=== PATIENT | female | born 1960 | race Caucasian/White ===

== ENCOUNTER → 2016-11-23 | Outpatient (CLI) | payer BC ==
[~2016-11-23] MED LIST: ATEN25TA PO; ATEN50TA PO; ATEN50TA8 PO; BUSP15TA70 PO; CITA40TA4 PO; MULT-506 PO
== END | disposition home or self-care (01) ==
LOC: C.PAPS 09:31
PROVIDERS: ATTEND Family Medicine
DX: Z01.411 Encounter for gynecological examination (general) (routine) with abnormal findings (principal); R87.616 Satisfactory cervical smear but lacking transformation zone; N88.0 Leukoplakia of cervix uteri

== ENCOUNTER → 2016-11-27 | Outpatient (CLI) | payer BC ==
--- NOTE | 2016-11-27 12:06 | DIAGNOSTIC IMAGING REPORT ---
EXAMINATION: PELVIC ULTRASOUND CLINICAL HISTORY: [id number] PELVIC PAIN COMPARISON STUDY: None FINDINGS: The uterus measured 5.2 cm. The endometrial stripe measured 5 mm. The right ovary measured 1.3 cm maximum dimension. Normal vascular flow. The left ovary measured 2.4 cm maximum dimension with normal vascular flow. There is no ultrasonographic evidence of ovarian torsion. It should be noted that ovarian torsion can be present with normal Doppler ultrasonographic findings. There was no evidence of pathologic free pelvic fluid. IMPRESSION: Negative study Electronically signed by: Pierce Koenig M.D. 11/27/2016 12:05 PM Dictated Date/Time: 11/27/2016 12:03 PM
--- NOTE | 2016-11-28 10:06 | DIAGNOSTIC IMAGING REPORT ---
EXAMINATION: PELVIC ULTRASOUND CLINICAL HISTORY: [id number] PELVIC PAIN COMPARISON STUDY: None FINDINGS: The uterus measured 5.2 cm. The endometrial stripe measured 5 mm. The right ovary measured 1.3 cm maximum dimension. Normal vascular flow. The left ovary measured 2.4 cm maximum dimension with normal vascular flow. There is no ultrasonographic evidence of ovarian torsion. It should be noted that ovarian torsion can be present with normal Doppler ultrasonographic findings. There was no evidence of pathologic free pelvic fluid. IMPRESSION: Negative study Electronically signed by: Pierce Koenig M.D. 11/27/2016 12:05 PM Dictated Date/Time: 11/27/2016 12:03 PM
== END | disposition home or self-care (01) ==
LOC: C.ULTR 10:37
PROVIDERS: ATTEND Family Medicine
DX: N94.10 Unspecified dyspareunia (principal)

== ENCOUNTER → 2016-12-14 | Day surgery (SDC) | payer BC, OTHER ==
[2016-12-12 09:03] VITALS: Ht 167.6 cm; Wt 77.3 kg
[~2016-12-14] VITALS: Ht 167.6 cm; Wt 77.3 kg
[~2016-12-14] MED LIST changes: -ATEN25TA PO
--- NOTE | 2016-12-14 13:23 | Endo History and Physical ---
History & Physical Date of Service: Dec 14, 2016. Chief Complaint: 3 yr f/u, hx polyps Referring Physician: Vandana Araiza History of Present Illness 56 yo CF who presents for colonoscopy secondary to history of polyps. Past Surgical History Hx Cardiac Surgery: No Hx Internal Defibrillator: No Hx Pacemaker: No Hx Abdominal Surgery: Yes (UTERINE ABLATION, TUBAL LIGATION) Hx of Implantable Prosthesis: No Hx Post-Op Nausea and Vomiting: No Hx Cancer Surgery: No Hx Thoracic Surgery: No Hx Orthopedic: No Hx Urinary Tract Surgery: No Family History Colon CA Social History Smoking Status: Never Smoker Hx Substance Use: No Hx Alcohol Use: No Allergies Coded Allergies: No Known Allergies (Verified , 12/12/16) Current Medications Reported Home Medications Medications Dose Route/Sig Max Daily Dose Days Date Category Multivitamin (Multivitamins) Tab 1 Tab PO QAM 12/12/16 Reported Buspar (Buspirone Hcl) 15 Mg Tab 15 Mg PO BID 12/12/16 Reported Tenormin (Atenolol) 50 Mg Tab 0.5 Tab PO QPM 12/12/16 Reported Citalopram Hydrobromide 40 Mg Tab 1.5 Tab PO QAM 05/16/13 Reported Tenormin (Atenolol) 50 Mg Tab 50 Mg PO QAM 05/02/06 Reported Vital Signs Weight (Kilograms): 77.27 Height (Feet): 5 Height (Inches): 6 Date Time Temp Pulse Resp B/P Pulse Ox O2 Delivery O2 Flow Rate FiO2 12/14/16 12:51 36.6 60 16 109/68 96 Room Air Physical Exam General Appearance: WD/WN, no apparent distress Respiratory/Chest: Auscultation: breath sounds normal Cardiovascular: Heart Auscultation: RRR Abdomen: Bowel Sounds: normal Inspection & Palpation: soft, non-distended, no tenderness, guarding & rebound Assessment and Plan Assessment: 56 yo CF who presents for colonoscopy secondary to history of polyps. Plan: Proceed with colonoscopy.
--- NOTE | 2016-12-14 13:41 | Discharge Instructions ---
Endoscopy Patient Instructions Date / Procedure(s) Performed Dec 14, 2016. Colonoscopy Allergy Information Coded Allergies: No Known Allergies (Verified , 12/12/16) Discharge Date / Findings Dec 14, 2016. Colon polyps Internal hemorrhoids Medication Instructions OK to resume all medications today as prescribed. Reported Home Medications Medications Dose Route/Sig Max Daily Dose Days Date Category Multivitamin (Multivitamins) Tab 1 Tab PO QAM 12/12/16 Reported Buspar (Buspirone Hcl) 15 Mg Tab 15 Mg PO BID 12/12/16 Reported Tenormin (Atenolol) 50 Mg Tab 0.5 Tab PO QPM 12/12/16 Reported Citalopram Hydrobromide 40 Mg Tab 1.5 Tab PO QAM 05/16/13 Reported Tenormin (Atenolol) 50 Mg Tab 50 Mg PO QAM 05/02/06 Reported Provider Instructions Activity Restrictions - No exercising or heavy lifting for 24 hours. - Do not drink alcohol the day of the procedure. - Do not drive a car or operate machinery until the day after the procedure. - Do not make any important decisions or sign important papers in 24 hours after the procedure. Following Day: - Return to full activity which may include returning to work/school. Diet Start your diet with liquids and light foods (jello, soup, juice, toast). Then eat your usual diet if not nauseated. Treatment For Common After Affects For mild abdominal pain, bloating, or excessive gas: - Rest - Eat lightly - Lie on right side Follow-Up Information Follow-up with Vandana Araiza as scheduled Anesthesia Information What You Should Know You have had a procedure that required some medicine to reduce anxiety and discomfort. This treatment is called moderate sedation. After receiving the treatment, you may be sleepy, but you will be able to breathe on your own. The effects of the treatment may last for several hours. Follow these instructions along with Activity/Diet recommendations noted above: * Do NOT do anything where dizziness or clumsiness would be dangerous. * Rest quietly at home today, then you can be up and about tomorrow. * Have a responsible person stay with you the rest of today. * You may have had an I.V. today. If so, you may take the dressing off later today. Recommendations Call your doctor if: * Trouble breathing * Continuous vomiting for more than 24 hours * Temperature above 101 degrees * Severe abdominal pain or bloating * Pain not relieved by pain medicine ordered * There is increased drainage or redness from any incision * A large amount of rectal bleeding greater than 2-3 tablespoons. (If you had a polyp/s removed or have hemorrhoids, a small amount of blood - from the rectum is to be expected.) * You have any unanswered questions or concerns. IN THE EVENT OF A SERIOUS EMERGENCY, GO TO THE NEAREST EMERGENCY ROOM Your discharge instructions were prepared by provider Dayo Mix. Patient Instructions Signature Page Eliz Jalloh Patient (or Guardian) Signature/Date: I have read and understand the instructions given to me by my caregivers. Caregiver/RN/Doctor Signature/Date: The above-named patient and/or guardian has received patient instructions on this date. + Original Patient Signature Page (only) stays with chart. Please make copy for patient.
--- NOTE | 2016-12-14 13:45 | GI REPORT ---
Procedure Date: 12/14/2016 1:14 PM Procedure: Colonoscopy Indications: High risk colon cancer surveillance: Personal history of colonic polyps Medicines: Monitored Anesthesia Care Complications: No immediate complications. Estimated Blood Loss: Estimated blood loss: none. Procedure: Pre-Anesthesia Assessment: - Prior to the procedure, a History and Physical was performed, and patient medications and allergies were reviewed. The patient's tolerance of previous anesthesia was also reviewed. The risks and benefits of the procedure and the sedation options and risks were discussed with the patient. All questions were answered, and informed consent was obtained. Prior Anticoagulants: The patient has taken no previous anticoagulant or antiplatelet agents. ASA Grade Assessment: II - A patient with mild systemic disease. After reviewing the risks and benefits, the patient was deemed in satisfactory condition to undergo the procedure. After I obtained informed consent, the scope was passed under direct vision. Throughout the procedure, the patient's blood pressure, pulse, and oxygen saturations were monitored continuously. The scope was introduced through the anus and advanced to the terminal ileum. The colonoscopy was performed without difficulty. The patient tolerated the procedure well. The quality of the bowel preparation was good. The terminal ileum, ileocecal valve, appendiceal orifice, and rectum were photographed. Findings: Four sessile polyps were found in the sigmoid colon. The polyps were 3 to 5 mm in size. These polyps were removed with a hot snare. Resection and retrieval were complete. Non-bleeding internal hemorrhoids were found during retroflexion. The hemorrhoids were small. Impression: - Four 3 to 5 mm polyps in the sigmoid colon, removed with a hot snare. Resected and retrieved. - Non-bleeding internal hemorrhoids. Recommendation: - Resume previous diet. - Continue present medications. - Repeat colonoscopy for surveillance based on pathology results. - Return to primary care physician as previously scheduled. Dayo Mix DO 12/14/2016 1:43:59 PM This report has been signed electronically. Note Initiated On: 12/14/2016 1:14 PM I attest to the content of the Intraoperative Record and orders documented therein, exceptions below
[2016-12-14 13:59] VITALS: BP 119/65; PULSE 59; O2SAT 97
--- NOTE | 2016-12-14 14:37 | Anesthesiology Progress Note ---
Anesthesia Post Op Note Date & Time Dec 14, 2016 at 14:37 Vital Signs Pain Intensity: 0 Vital Signs Past 12 Hours Date Time Temp Pulse Resp B/P Pulse Ox O2 Delivery O2 Flow Rate FiO2 12/14/16 13:59 59 16 119/65 97 Room Air 12/14/16 13:44 60 16 105/58 96 Room Air 12/14/16 12:51 36.6 60 16 109/68 96 Room Air Notes Mental Status: alert / awake / arousable, participated in evaluation Pt Amnestic to Procedure: Yes Nausea / Vomiting: adequately controlled Pain: adequately controlled Airway Patency, RR, SpO2: stable & adequate BP & HR: stable & adequate Hydration State: stable & adequate Anesthetic Complications: no major complications apparent
== END | disposition home or self-care (01) ==
LOC: C.GI 12:27
PROVIDERS: ATTEND Internal Medicine
DX: Z12.11 Encounter for screening for malignant neoplasm of colon (principal); Z86.010 Personal history of colon polyps; Z80.0 Family history of malignant neoplasm of digestive organs; K63.5 Polyp of colon; K64.8 Other hemorrhoids; Z98.51 Tubal ligation status

== ENCOUNTER → 2017-03-28 | Outpatient (CLI) | payer BC ==
[2017-03-28 10:30] LABS: CHOLESTEROL/HDL RATIO 4.8
[2017-03-28 10:31] LABS: ESTIMATED AVERAGE GLUCOSE 105 mg/dl; HA1C FLAG Normal (Normal)
== END | disposition home or self-care (01) ==
LOC: C.LAB1850 08:51
PROVIDERS: ATTEND Family Medicine
DX: Z13.220 Encounter for screening for lipoid disorders (principal); Z13.1 Encounter for screening for diabetes mellitus

== ENCOUNTER → 2017-05-16 | Outpatient (CLI) | payer BC ==
[2017-05-16 18:22] LABS: BENZODIAZEPINE, URINE NEG (NEG); COCAINE,URINE NEG (NEG); PHENCYCLIDINE, URINE NEG (NEG)
== END | disposition home or self-care (01) ==
LOC: C.LAB 17:19
PROVIDERS: ATTEND Physician Assistant
DX: Z00.00 Encounter for general adult medical examination without abnormal findings (principal)

== ENCOUNTER → 2018-02-11 | Outpatient (CLI) | payer BC ==
--- NOTE | 2018-02-11 09:57 | DIAGNOSTIC IMAGING REPORT ---
L FOREARM 2 VIEWS ROUTINE CLINICAL HISTORY: M79.602 Pain of left upper [id number] pain COMPARISON: None. DISCUSSION: The bones and joint spaces appear intact. There is no evidence of fracture, dislocation or bony disease. There is no evidence for soft tissue swelling. IMPRESSION: Negative study. The above report was generated using voice recognition software. It may contain grammatical, syntax or spelling errors. Electronically signed by: Pierce Koenig M.D. 02/11/2018 9:56 AM Dictated Date/Time: 02/11/2018 9:55 AM
--- NOTE | 2018-02-11 09:58 | DIAGNOSTIC IMAGING REPORT ---
L WRIST MIN 3 VIEWS ROUTINE CLINICAL HISTORY: M79.602 left wrist pain COMPARISON: None. DISCUSSION: No fractures or dislocations are visualized. There is no evidence for erosive disease. IMPRESSION: 1. No fractures identified 2. No evidence of erosive disease Electronically signed by: Thomas Paz M.D. 02/11/2018 9:57 AM Dictated Date/Time: 02/11/2018 9:56 AM
== END | disposition home or self-care (01) ==
LOC: C.RAD1850 09:41
PROVIDERS: ATTEND Nurse Practitioner Family
DX: M79.602 Pain in left arm (principal)

== ENCOUNTER 2018-12-16 08:41 | Observation (INO) ==
--- NOTE | 2018-12-12 12:50 | PAT Medication Instructions ---
Medication Instructions Date of Service December 12, 2018 Home Medications buspirone 15 mg PO BID citalopram 1.5 tab PO QAM hydroxyzine HCl 5 - 10 mg PO QID PRN (if needed) metoprolol succinate 50 mg PO BID Take morning of surgery With a small sip of water, OTHERWISE NOTHING TO EAT OR DRINK AFTER MIDNIGHT: buspirone 15 mg PO BID citalopram 1.5 tab PO QAM hydroxyzine HCl 5 - 10 mg PO QID PRN (if needed) metoprolol succinate 50 mg PO BID Take evening before surgery buspirone 15 mg PO BID hydroxyzine HCl 5 - 10 mg PO QID PRN (if needed) metoprolol succinate 50 mg PO BID Other Notes If you have any questions please call us at [phone] or [phone] or [phone] or [phone]
--- NOTE | 2018-12-12 14:44 | Anesthesiology Consultation ---
Date of Service December 12, 2018 Assessment & Plan (1) Encounter for pre-operative examination: Chart Review Chart Review: Acceptable Risk for Surgery and Patient seen in Pre Admission Testing Teaching & Discussion Pre-Anesthesia Teaching/Discussion Notes: Instructed NPO after midnight before surgery,except medications with 15 cc of water. Medication instructions provided according to the PAT guidelines. History Surgery Operation Date: 12/16/18 11:30 Proposed Procedures p Bilateral Breast Reduction - Symone Knowles MD Height/Weight Height: 5 ft 5 in Weight: 83.5 kg Allergies Allergy/AdvReac Type Severity Reaction Status Date / Time No Known Allergies Allergy Unknown Verified 12/06/18 12:14 Medications Home Medications Medication Instructions Recorded Confirmed Last Taken buspirone 15 mg PO BID 12/06/18 12/06/18 Unknown citalopram 1.5 tab PO QAM 12/06/18 12/06/18 Unknown hydroxyzine HCl 5 - 10 mg PO QID PRN 12/06/18 12/06/18 Unknown metoprolol succinate 50 mg PO BID 12/06/18 12/06/18 Unknown Past Medical History Medical History Obesity Anxiety and depression Hypertension Past Family History Family History Father FHx: colon cancer Mother FHx: colon cancer Past Surgical History Surgical History Hx of section Hx of tubal ligation Hx of vaginal surgery ABLATION Past Anesthesia History No Hx of Anesthesia Complications and No Family Hx of Anesthesia Complications History of PONV No Motion Sickness Screening History of Motion Sickness: Yes Social History Smoking Status: Former smoker Do You Dip or Chew Tobacco: No Smoking End Date: QUIT > 25 YEARS AGO Hx Alcohol Use: No Hx Substance Use: No Exercise / Class Metabolic Activity II 4-5 Yardwork/Stairs/Walk up hill Review of Systems Patient denies chest pain, shortness of breath, dyspnea on exertion, cough, wheezing, palpitations. Physical Exam Vital Signs VITALS BP 106/73 P 56 TEMP 97.4 SP02 97%RA RESP 16 PHYSICAL Full neck and c-spine range of motion. Full TMJ range of motion. TMD 3 finger breaths Mallampati Score 1 Dentition: intact Lungs: clear throughout to auscultation Cardiac: regular rate and rhythm, no murmurs noted Spine: normal Carotid arteries: negative bruit Extremities: no edema Testing Electrocardiogram Date: 12/12/18 SB with first degree AVB at 57bpm. Laboratory Results 12/12/18 14:52 12/12/18 14:52 PT 10.1 Seconds (9.0-12.0) 12/12/18 14:52 INR 1.0 (0.9-1.1) 12/12/18 14:52 APTT 26.9 Seconds (21.0-31.0) 12/12/18 14:52
[2018-12-12 15:33] LABS: Basophils # (auto) 0.01 K/uL (0-0.2); Basophils % (auto) 0.1 %; Eosinophils % (auto) 2.6 %; Hematocrit (blood only) 41.2 % (37-47); Hemoglobin 14.2 g/dL (12.0-16.0); Immature Granulocytes # (auto) 0.01 K/uL (0.00-0.02); Immature Granulocytes % (auto) 0.1 %; Lymphocytes # (auto) 2.94 K/uL (1.2-3.4); Lymphocytes % (auto) 38.4 %; Mean Corpuscular Hgb Conc 34.5 g/dL (32-36); Mean Corpuscular Volume 89.6 fL (80-100); Mean Platelet Volume 10.8 fL (7.4-10.4); Monocytes # (auto) 0.41 K/uL (0.11-0.59); Monocytes % (auto) 5.4 %; Neutrophils # (auto) 4.08 K/uL (1.4-6.5); Neutrophils % (auto) 53.4 %; Platelet Count 212 K/uL (130-400); RDW Standard Deviation 42.5 fL (36.4-46.3); White Blood Count 7.65 K/uL (4.8-10.8)
[2018-12-12 15:40] LABS: BUN Creatinine Ratio 15.1 (10-20); Calcium 8.9 mg/dl (8.5-10.1); Creatinine Clr Calc Pharmacy 87.2 ml/min; Est GFR (African American) 100.9; Est GFR (Non-African American) 87.1; Potassium 3.9 mmol/L (3.5-5.1)
[2018-12-12 15:48] LABS: Partial Thromboplastin Time 26.9 Seconds (21.0-31.0); Prothrombin Time 10.1 Seconds (9.0-12.0)
[~2018-12-16 08:41] MED LIST changes: -ATEN50TA PO; -ATEN50TA8 PO; -BUSP15TA70 PO; +CEFAZOLIN 2000MG 2,000 MG/15 ML SYR IV SCH; -CITA40TA4 PO; +LR 15ML/HR IV SCH; -MULT-506 PO
[2018-12-16] MEDS ORDERED: MIDAZOLAM HCL 1 MG/ML 2ML VIAL ONE (10:44)
[2018-12-16] MEDS ORDERED: fentaNYL citrate 100 MCG/2 ML VIAL ONE (10:45)
[2018-12-16] MEDS ORDERED: LIDOCAINE HCL 2% 2 ML VIAL/AMP(20MG/ML) INFIL ONE (10:46)
[2018-12-16] MEDS ORDERED: PROPOFOL IV EMULSION 10 MG/ML 20 ML VIAL IV ONE (10:46)
[2018-12-16] MEDS ORDERED: ROCURONIUM BROMIDE 10 MG/ML 5 ML VIAL ONE ×2 (10:47→13:33)
[2018-12-16] MEDS ORDERED: ePHEDrine sulfate 50 MG/ML AMP IV PRN (11:21)
[2018-12-16] MEDS ORDERED: ATROPINE SULFATE 0.1 MG/ML 10ML SYR IV PRN (11:21)
[2018-12-16] MEDS ORDERED: HYDROmorphone INJ 2 MG/ML SYR/VIAL IV PRN (11:21)
[2018-12-16] MEDS ORDERED: fentaNYL citrate 100 MCG/2 ML VIAL IV PRN (11:21)
[2018-12-16] MEDS ORDERED: ONDANSETRON INJ 2 MG/ML 2 ML VIAL IV PRN ×2 (11:21→16:50)
--- NOTE | 2018-12-16 11:37 | History & Physical Bridge Note ---
Date of Service December 16, 2018 History & Physical Bridge Note I have examined the patient, reviewed the History & Physical and in the interval since the performance of the History & Physical I have noted the following changes of clinical significance: no changes noted
[2018-12-16] MEDS ORDERED: BUPIVACAINE 0.25% 30 ML VIAL ONE (11:49)
[2018-12-16] MEDS ORDERED: LIDOCAINE/EPINEPHRINE 1% 20 ML VIAL ONE (11:49)
[2018-12-16] MEDS ORDERED: SCOPOLAMINE 1.5 MG TDSY ONE (11:53)
[2018-12-16] MEDS ORDERED: HYDROmorphone INJ 2 MG/ML SYR/VIAL ONE (12:30)
[2018-12-16] MEDS ORDERED: DEXAMETHASONE SOD INJ 4 MG/ML VIAL ONE (12:40)
[2018-12-16] MEDS ORDERED: ONDANSETRON INJ 2 MG/ML 2 ML VIAL ONE ×2 (12:40)
[2018-12-16] MEDS ORDERED: ePHEDrine sulfate 50 MG/ML SYR ONE (13:45)
[2018-12-16] MEDS ORDERED: GLYCOPYRROLATE 0.2 MG/ML VIAL ONE (14:26)
[2018-12-16] MEDS ORDERED: NEOSTIGMINE METHYLSULFATE 5 MG/5 ML SYR ONE (14:26)
--- NOTE | 2018-12-16 15:09 | Post Operative Brief Note ---
Immediate Post Op Note v1 Date of Surgery December 16, 2018 Pre & Post Diagnosis Operation Date: 12/16/18 11:30 Pre-Op Diagnosis: Bilateral Symptomatic Macromastia Post-Op Diagnosis: Bilateral Symptomatic Macromastia Procedure Operation Date: 12/16/18 11:30 Actual Procedures p Bilateral Breast Reduction(Bilateral) - Symone Knowles MD Surgeon Symone Knowles MD Buyer Agent Esmer Blackburn PA-C Estimated Blood Loss 50 Findings Consistent with Post-Op Diagnosis Drains Igor-Miranda Drain (x2)
--- NOTE | 2018-12-16 15:13 | Operative Report ---
Post Operative Report Pre & Post Diagnosis Operation Date: 12/16/18 11:30 Pre-Op Diagnosis: Bilateral Symptomatic Macromastia Post-Op Diagnosis: Bilateral Symptomatic Macromastia Procedure Operation Date: 12/16/18 11:30 Actual Procedures p Bilateral Breast Reduction(Bilateral) - Symone Knowles MD Surgeon Symone Knowles MD Miller Head Assistant Wet Process Esmer Blackburn PA-C Estimated Blood Loss 50 Findings Consistent with Post-Op Diagnosis Specimens left breast tissue 712 g, right breast 670 g Drains JPx2 Anesthesia Type General Complications none Indications back, neck and shoulder pain, intertrigo due to macromastia Description of Procedure The risks, benefits, and alternatives of the procedure were explained to the patient who agreed and signed consent. She was identified and marked in the preoperative holding area. She desired to be as small as possible while remaining proportional to her body size. She was brought to the operating room where she was positioned supine and placed under general anesthesia without incident. Surgical site was prepped and draped sterilely. A time-out procedure was performed. I began with the left side. Markings were reassessed and a 7 cm pedicle was marked. 1% lidocaine with epinephrine was used to anesthetize the planned incisions. A 38 mm cookie cutter was used to circumscribe the nipple-areolar complex. The previously marked 7 cm pedicle was incised using a 15 blade scalpel and deepithelized. I began with the medial dissection of the pedicle using electrocautery. Cautery was used to incise through dermis and breast parenchyma down to the chest wall, taking care not to undermine the pedicle during dissection. A similar procedure was undertaken on the lateral aspect of the pedicle again taking care not to undermine. Lastly, the pedicle was dissected out superiorly using electrocautery and this was carried down to the chest wall as well. I then began with excision of the medial breast tissue followed by lateral aspect of the breast tissue and surrounding keyhole incision. A 15 blade scalpel was used to make the inframammary fold incision and electrocautery was used to deepen the incision through dermis and breast parenchyma. Dissection was then carried superiorly to the level of the superior incision. Superior incision was then incised using a 15 blade scalpel and again dissected using electrocautery. This was undertaken laterally and then around the keyhole portion of the incision. Care was taken to leave some fat on the lateral pectoralis fascia in order to protect the T4 intercostal nerve. Hemostasis was achieved with electrocautery. The specimen was passed off in its entirety for weighing. Additional resection was undertaken from the superior flap in order to facilitate closure of the breast and to provide the best shape. The total resection weight of the left breast was 712 grams. The wound was irrigated with saline and hemostasis was achieved with electrocautery. 0.25% Marcaine plain was used to anesthetize the incisions as well as the pectoralis fascia. A 15 Maori Miguel Ángel drain was brought out through a separate stab incision. The nipple-areolar complex was brought into the keyhole using 2-0 Vicryl deep dermal suture. The wound was closed first in a lateral to mid breast direction and then medial to mid breast direction using 2-0 Vicryl deep dermal sutures. Vertical limb was also approximated using 2-0 Vicryl deep dermals and the nipple-areolar complex was inset using 2-0 Vicryl deep dermal sutures. Next, the superficial dermal layer was closed using 2-0 PDO running Quill suture along the inframammary fold and 3-0 PDS interrupted dermal sutures along the vertical limb and nipple-areolar complex. Lastly 3-0 Monocryl running subcuticular suture was placed. A similar procedure was undertaken on the right side with maximal excision weight of 670 grams. Breasts were symmetric and nipple-areolar complexes were viable bilaterally following wound closure. Dermabond Prineo was applied along the inframammary fold and vertical limb and Dermabond was placed around the nipple-areolar complex. Dry dressings and a surgical bra were placed. The patient was awakened and transferred to recovery room in satisfactory condition. Esmer Blackburn PA-C was present and scrubbed throughout the procedure and was instrumental in providing retraction during dissection of the pedicle and assisting in wound closure. I attest to the content of the Intraoperative Record and any orders documented therein. Any exceptions are noted below.
--- NOTE | 2018-12-16 16:29 | Anesthesiology Progress Note ---
Date of Service December 16, 2018 Anesthesia Post Procedure Vital Signs Vital Signs: Temp Pulse Pulse Pulse Resp BP BP 12/16/18 16:21 37.4 C 12/16/18 16:00 75 12 143/92 H 12/16/18 15:55 84 15 136/94 12/16/18 15:50 71 14 121/84 12/16/18 15:45 71 15 128/78 12/16/18 15:40 72 15 125/84 12/16/18 15:35 72 15 119/83 12/16/18 15:34 72 15 12/16/18 15:33 13 117/85 12/16/18 15:32 36.9 C 72 16 12/16/18 09:13 36.6 C 61 16 118/75 BP Pulse Ox 12/16/18 16:21 98 12/16/18 16:00 96 12/16/18 15:55 97 12/16/18 15:50 95 12/16/18 15:45 95 12/16/18 15:40 95 12/16/18 15:35 95 12/16/18 15:34 95 12/16/18 15:33 95 12/16/18 15:32 117/85 96 12/16/18 09:13 96 Pain Intensity Bilateral Breast: Pain Intensity: 0 Notes Mental Status: alert / awake / arousable and participated in evaluation Patient Amnestic to Procedure: Yes Nausea / Vomiting: adequately controlled Pain: adequately controlled Airway Patency, RR, SpO2: stable & adequate BP & HR: stable & adequate Hydration State: stable & adequate Anesthetic Complications: no major complications apparent
[2018-12-16] MEDS ORDERED: OXAZEPAM 10 MG CAPSULE PO PRN (16:50)
[2018-12-16] MEDS ORDERED: MoRPHine SULFATE 4 MG/ML 1 ML CARP\\VIAL IV PRN ×3 (16:50)
[2018-12-16] MEDS ORDERED: DiphenhydrAMINE HCL 50 MG/ML VIAL IV PRN (16:50)
[2018-12-16] MEDS ORDERED: OXYCODONE/ACETAMINOPHEN 5mg/325mg TAB PO PRN ×2 (16:50)
[2018-12-16] MEDS ORDERED: PROMETHAZINE HCL 12.5 MG in SODIUM CHLORIDE 0.9% 50 ML IV PRN (16:50)
[2018-12-16] MEDS ORDERED: D5W AND 1/2NSS + 20MEQ KCL 20 MEQ/1,000 ML BAG IV SCH (17:15)
[2018-12-16] MEDS: ACETAMINOPHEN 325 MG TAB PO PRN ×2 (17:17→21:57)
[2018-12-16] MEDS: CEFAZOLIN 2000MG 2,000 MG/15 ML SYR IV SCH (20:39)
[2018-12-16] MEDS: METOPROLOL SUCC 50MG EXT REL TAB PO SCH (20:39)
[2018-12-16] MEDS: BusPIRone 15 MG TAB PO SCH (20:39)
[2018-12-17] MEDS: ACETAMINOPHEN 325 MG TAB PO PRN (02:57)
[2018-12-17] MEDS: CEFAZOLIN 2000MG 2,000 MG/15 ML SYR IV SCH (03:00)
--- NOTE | 2018-12-17 08:08 | Surgery Progress Note ---
Date of Service December 17, 2018 Assessment & Plan (1) Breast hypertrophy: s/p bilateral breast reduction. Feeling well. Drains removed. D/C home todya Subjective Patient feeling well. Notes improvement in her pre-op symptoms. Offers no concerns. Physical Exam 2 Vital Signs (Past 24 Hours): Last Vital Signs Temp 36.6 C 12/17/18 03:56 Pulse 76 12/17/18 03:56 Resp 14 12/17/18 03:56 BP 111/75 12/17/18 03:56 Pulse Ox 95 12/17/18 03:56 Constitutional: WD/WN, vitals as above Skin: + incision (CDI, nipples pink and viable bilaterally)
[2018-12-17] MEDS: BusPIRone 15 MG TAB PO SCH (08:49)
[2018-12-17] MEDS: METOPROLOL SUCC 50MG EXT REL TAB PO SCH (08:50)
[2018-12-17] MEDS ORDERED: MULTIVITAMIN TAB PO SCH (09:00)
[2018-12-17] MEDS ORDERED: CITALOPRAM 40 MG TAB PO SCH ×2 (09:00)
--- NOTE | 2018-12-17 13:30 | Anesthesiology Progress Note ---
Date of Service December 17, 2018 Anesthesia Post Procedure Vital Signs Vital Signs: Temp Pulse Pulse Pulse Resp BP BP 12/17/18 09:38 36.7 C 80 64 14 118/75 12/17/18 08:14 36.7 C 64 14 12/17/18 03:56 36.6 C 76 14 12/16/18 23:38 37.0 C 79 15 12/16/18 20:39 80 12/16/18 19:48 36.5 C 80 16 12/16/18 18:40 36.6 C 89 16 12/16/18 17:40 36.6 C 72 15 12/16/18 17:10 36.8 C 78 18 12/16/18 16:40 36.6 C 77 15 12/16/18 16:26 75 14 122/79 12/16/18 16:25 69 14 12/16/18 16:21 37.4 C 12/16/18 16:20 65 12 127/89 12/16/18 16:15 67 13 132/85 12/16/18 16:10 72 16 136/94 12/16/18 16:05 72 14 131/90 12/16/18 16:00 75 12 143/92 H 12/16/18 15:55 84 15 136/94 12/16/18 15:50 71 14 121/84 12/16/18 15:45 71 15 128/78 12/16/18 15:40 72 15 125/84 12/16/18 15:35 72 15 119/83 12/16/18 15:34 72 15 12/16/18 15:33 13 117/85 12/16/18 15:32 36.9 C 72 16 BP Pulse Ox 12/17/18 09:38 137/86 97 12/17/18 08:14 137/86 97 12/17/18 03:56 111/75 95 12/16/18 23:38 111/73 94 12/16/18 20:39 122/64 12/16/18 19:48 112/76 96 12/16/18 18:40 120/84 96 12/16/18 17:40 115/80 96 12/16/18 17:10 122/83 98 12/16/18 16:40 115/81 96 12/16/18 16:26 97 12/16/18 16:25 95 12/16/18 16:21 98 12/16/18 16:20 97 12/16/18 16:15 96 12/16/18 16:10 98 12/16/18 16:05 96 12/16/18 16:00 96 12/16/18 15:55 97 12/16/18 15:50 95 12/16/18 15:45 95 12/16/18 15:40 95 12/16/18 15:35 95 12/16/18 15:34 95 12/16/18 15:33 95 12/16/18 15:32 117/85 96
--- NOTE | 2018-12-17 15:59 | Discharge Summary ---
Date of Service December 17, 2018 Admission HPI Per Admitting Provider se admission H&P Admission Exam Per Admitting Provider see admission H&P Principal Diagnosis breast hypertrophy Discharge Exam Constitutional WD/WN, vitals as above Skin + incision (CDI, nipples pink and viable bilaterally) Discharge Data Allergies Allergy/AdvReac Type Severity Reaction Status Date / Time No Known Allergies Allergy Unknown Verified 12/16/18 09:08 Procedures Performed Operation Date: 12/16/18 11:30 Actual Procedures p Bilateral Breast Reduction(Bilateral) - Symone Knowles MD Hospital Course (1) Breast hypertrophy: Patient presented to [facility] with history of symptomatic macromastia. She was taken to the OR and underwent bilateral breast reduction. There were no intraoperative complications. On POD #1 her drains were removed. On exam, her incisions were CDI and nipples were pink and with sensation bilaterally. She was discharged home. Total Time Total Time Spent Total Time Spent (In Minutes): 10 Total Time Includes: Examination of the Patient, Discharge Planning and Medication Reconciliation Discharge Plan Discharge Items Patient Disposition: Home - Self-Care Reason For Visit: Bilateral Symptomatic Macromastia Discharge Diagnosis: s/p bilateral breast reduction Discharge Goals: Decrease discomfort and Improve function Activity: As commented below Non-emergency contact: Surgeon Call non-emergency contact if: your pain is not controlled, you have a fever and your wound has increased redness Follow-up/Referrals: Manuel Taylor III, CRNP [Primary Care Provider] - Diet: Regular Addtl Provider Instructions: ACTIVITY RECOMMENDATIONS: __Normal activities _x_No bending, lifting or straining __No driving __Driving allowed when you are off pain medications _x_Walking permitted __You should have help at home for ___ days DRESSINGS: __No dressings required _x_Keep dressings dry/in place until first office visit __Remove dressings ___ and leave dressings off __Apply ice ___ days __Remove dressings and reapply garment __Apply antibiotic ointment (Bacitracin, Neosporin, etc) to wounds 3-4 times/ day for 10 days BATHING: _x_Keep dressings dry _x_Sponge bathing permitted __Showering permitted _x_No swimming, hot tubs or soaking in a tub MEDICATIONS: Resume previous medications unless instructed otherwise by your surgeon. _x_Do not use aspirin, Motrin, Advil or Ibuprofen as these may promote bleeding. Please use Tylenol. _x_Prescription(s) provided: pain medication provided at your last office visit OTHER INSTRUCTIONS: __Record drain output 2-3 times per day SPECIAL CARE INSTRUCTIONS: * It is normal to have a mild fever after surgery. If your temperature is higher than 101.5 degrees F, please call the office at [phone]. * Constipation is a typical side effect of pain medication. An over-the- counter stool softener will help relieve this. * Leaking around surgical drains may occur and should not cause concern. Sometimes these drains become clogged. If this happens, remove the bulb and milk the clot out of the tube, then replace the bulb. * Drainage from wounds after liposuction is normal and should be expected. Garments will become soiled. You should protect furniture and bedding. This drainage should mostly subside within 2-3 days. Leave garments in place unless instructed to remove them. * If you have unusual drainage from a wound or are concerned you have an infection or have any questions or concerns, please call the office at [phone]. FOLLOW UP VISIT: If not already scheduled, please call the office, , when you return home after surgery to schedule an appointment to be seen in __1_ days. Prescriptions: Continue citalopram 40 mg Tablet 1.5 tab PO QAM RF: 0 hydroxyzine HCl 10 mg Tablet 5 - 10 mg PO QID PRN (Reason: Anxiety) RF: 0 buspirone 15 mg Tablet 15 mg PO BID RF: 0 metoprolol succinate 50 mg Capsule,Sprinkle,Er 24hr 50 mg PO BID RF: 0 Stand-Alone Forms: [facility] Discharge Orders: Discharge Order (Routine); Ordered 12/17/18 Ordered By: Esmer Blackburn Admission Data Admit Date/Time: 12/16/18 15:38 Attending Provider: Symone Knowles Admit Provider: Symone Knowles Primary Care Provider: Manuel Taylor III Service: Surgical Services Other Interventions: Discharge Summary Assessment (RN) Last Done: 12/17/18 09:38 Pending Studies at Discharge: Yes Studies:: pathology DC Date/Time DO NOT enter until pt leaves facility: 12/17/18 11:03
== END 2018-12-17 11:03 | disposition home or self-care (01) ==
LOC: 3W 08:41 → ASU 08:41